=== PATIENT | female | born 1955 | race Caucasian/White ===

== ENCOUNTER → 2023-10-23 09:54 | Outpatient (REF) | payer MEDICARE, OTHER, SELFPAY ==
[2023-10-24 23:12] LABS: Fat, Fecal - Neutral Normal (Normal); Fat, Fecal - Split Normal (Normal)
[2023-10-25 17:48] LABS: Pancreatic Elastase, Fecal 152 ug/g (>=100)
[2023-10-25 18:19] LABS: Calprotectin, Fecal 46 ug/g (<=49)
== END ==
LOC: REG 09:54
PROVIDERS: ATTENDING PHYSICIAN Internal Medicine Gastroenterology; FAMILY PHYSICIAN Physician Assistant Medical
DX: R19.4 Change in bowel habit (principal)
CPT/HCPCS: 82653; 82705; 83993; 89055

== ENCOUNTER → 2023-12-26 06:37 | Outpatient (REF) | payer MEDICARE, OTHER, SELFPAY | LOC: RAD 06:37 | PROVIDERS: ATTENDING PHYSICIAN Nurse Practitioner Family; FAMILY PHYSICIAN Physician Assistant Medical | DX: R19.4 Change in bowel habit (principal) | CPT/HCPCS: 74270 ==

== ENCOUNTER → 2024-02-06 11:56 | Outpatient (REF) | payer MEDICARE, OTHER, SELFPAY | LOC: CLAB 11:56 | PROVIDERS: ATTENDING PHYSICIAN Surgery | DX: K26.9 Duodenal ulcer, unspecified as acute or chronic, without hemorrhage or perforation (principal) | CPT/HCPCS: 88305 ==

== ENCOUNTER 2024-04-08 06:48 | Day surgery (SDC) | payer MEDICARE, OTHER, SELFPAY ==
[2024-04-08 13:30] VITALS: BMI 26.1
[2024-04-08 13:36] VITALS: BP 145/86
[2024-04-08 15:31] VITALS: BP 94/52
[2024-04-08 15:45] VITALS: BP 106/63
[2024-04-08 16:00] VITALS: BP 107/62
--- NOTE | 2024-04-08 16:04 | OR.RPT ---
Operative Report
Operative Report
DATE OF OPERATION: 04/08/2024
SURGEON: Isaiah Abarca MD
PREOPERATIVE DIAGNOSIS: Fecal incontinence
POSTOPERATIVE DIAGNOSIS: Fecal incontinence
OPERATION: Flexible sigmoidoscopy, endoanal ultrasound
ASSISTANTS:
1. Clyde Alejandro MD
ANESTHESIA: Propofol sedation
FINDINGS:
1. Flexible sigmoidoscopy reported separately; reached the rectosigmoid junction until hard stool; no rectal pathology noted distally
2. Endoanal ultrasound evaluation of anal canal revealed a perineal body of 4.7 mm; apparent defect in the external anal sphincter of approximately 120 degrees
SPECIMENS:
1. None
COMPLICATIONS: None
INDICATIONS: The patient is a 68-year-old female who has longstanding fecal incontinence. She presents for flexible sigmoidoscopy with endoanal ultrasound to evaluate for any anal sphincter defects. The procedure was discussed with the patient in
detail, including the risks, benefits and alternatives. Risks described included, but not limited to, bloating, bleeding, bowel perforation, inability to complete the procedure and missed lesions. The patient understood and agreed to proceed.
PROCEDURE IN DETAIL: The patient was taken to the endoscopy room and placed left lateral position. A timeout was performed verifying the correct patient, procedure, positioning and special equipment. Sedation was induced without complication.
I began the procedure by performing a flexible sigmoidoscopy. This is reported separately. I was able to advance to the rectosigmoid junction, and then encountered solid stool. No mucosal pathology was noted in the mucosa of the sigmoid colon
that was able to be visualized or the rectum which was completely visualized.
I then began the endoanal ultrasound. I inserted the rigid proctoscope sheath with obturator, then removed the obturator. I inserted the lubricated endoanal ultrasound until I felt resistance. I pulled the sheath back and clipped it into place.
I inflated the balloon until the lumen was flatly juxtaposed to the balloon. I then evaluated the distal rectum and anal canal by moving the crystal proximally and distally. I identified the levator ani sling and marked this as the proximal anal
canal. I identified the mid anal canal and marked this. There was a concerning defect anteriorly in the external anal sphincter, about 120 degrees in size. I marked this '? defect'. I advanced the crystal and identified the distal anal canal and
marked this. I then inserted a gloved finger in the distal vaginal canal and marked out the perineal body, which measured 4.7 mm. The balloon was then desufflated and the sheath with endoanal ultrasound was removed. The 120 degree disruption in
the hyperechoic external anal sphincter in combination with the attenuated perineal body is consistent with a sphincter defect.
At this point, the procedure was complete. The patient was awoken without complication. The patient tolerated the procedure well and was transferred to the recovery room in stable condition.
Of note, Clyde Alejandro MD, ophthalmic assistant, was necessary during this procedure for assistance with performing the procedure as well as for assistance with interpreting the images. I was present for the entire duration of the case.
DICTATED BY: Isaiah Abarca MD
== END 2024-04-08 16:22 | disposition home or self-care (01) ==
LOC: SDS 06:48
PROVIDERS: ATTENDING PHYSICIAN Surgery
DX: R15.9 Full incontinence of feces (principal); T81.89XA Other complications of procedures, not elsewhere classified, initial encounter; Y93.89 Activity, other specified
CPT/HCPCS: 45341

== ENCOUNTER 2024-05-28 10:08 | Outpatient (RCR) | payer MEDICARE, OTHER, SELFPAY | END 2024-05-28 23:59 | disposition home or self-care (01) | LOC: RPT 10:08 | PROVIDERS: ATTENDING PHYSICIAN Internal Medicine Gastroenterology; FAMILY PHYSICIAN Physician Assistant Medical | DX: M62.89 Other specified disorders of muscle (principal); R15.2 Fecal urgency; K59.00 Constipation, unspecified; R10.30 Lower abdominal pain, unspecified; Z73.6 Limitation of activities due to disability | CPT/HCPCS: 97140; 97163; 97530 ==

== ENCOUNTER 2024-06-12 09:59 | Outpatient (RCR) | payer MEDICARE, OTHER, SELFPAY | END 2024-06-12 23:59 | disposition home or self-care (01) | LOC: RPT 09:59 | PROVIDERS: ATTENDING PHYSICIAN Internal Medicine Gastroenterology; FAMILY PHYSICIAN Physician Assistant Medical | DX: M62.89 Other specified disorders of muscle (principal); R15.2 Fecal urgency; K59.00 Constipation, unspecified; R10.30 Lower abdominal pain, unspecified; Z73.6 Limitation of activities due to disability | CPT/HCPCS: 97110; 97140; 97530 ==

== ENCOUNTER → 2024-08-07 13:30 | Outpatient (REF) | payer MEDICARE, OTHER, SELFPAY | LOC: HWWDC 13:30 | PROVIDERS: ATTENDING PHYSICIAN Physician Assistant Medical | DX: Z12.31 Encounter for screening mammogram for malignant neoplasm of breast (principal) | CPT/HCPCS: 77063; 77067 ==

== ENCOUNTER → 2024-10-30 10:15 | Outpatient (REF) | payer MEDICARE, OTHER, SELFPAY | LOC: HWRAD 10:15 | PROVIDERS: ATTENDING PHYSICIAN Internal Medicine Critical Care Medicine; FAMILY PHYSICIAN Physician Assistant Medical | DX: Z87.891 Personal history of nicotine dependence (principal) | CPT/HCPCS: 71271 ==

== ENCOUNTER → 2025-03-19 09:08 | Outpatient (REF) | payer MEDICARE, OTHER, SELFPAY | LOC: RCS 09:08 | PROVIDERS: ATTENDING PHYSICIAN Internal Medicine Cardiovascular Disease; FAMILY PHYSICIAN Physician Assistant Medical | DX: R01.1 Cardiac murmur, unspecified (principal) | CPT/HCPCS: 93306 ==

== ENCOUNTER → 2025-05-07 13:38 | Outpatient (REF) | payer MEDICARE, OTHER, SELFPAY | LOC: HWRAD 13:38 | PROVIDERS: ATTENDING PHYSICIAN Internal Medicine Critical Care Medicine; FAMILY PHYSICIAN Physician Assistant Medical | DX: R91.1 Solitary pulmonary nodule (principal) | CPT/HCPCS: 71250 ==